=== PATIENT | female | born 1975 | race Caucasian/White ===

== ENCOUNTER 2023-05-14 17:07 | Emergency (ER) | payer OTHER, SELFPAY ==
--- NOTE | ~2023-05-14 | XR_ITS ---
XR foot LT min 3V DATE: 05/14/2023 17:46 INDICATION: Dropped bumper on foot. Pain, swelling, bruising of the dorsum TECHNIQUE: 4 views COMPARISON: None FINDINGS: Prominent plantar and moderately prominent posterior calcaneal enthesopathy. 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 No fracture or dislocation, periosteal reaction or bone destruction is detected. 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
[2023-05-14 17:13] VITALS: BP 139/91; PULSE 92; RESP 18; TEMP 36.1; O2SAT 98
--- NOTE | 2023-05-14 19:18 | ED.LOWEXIN ---
HPI - Extremity Injury (Lower) General Chief Complaint: Extremity Injury, Lower <Rebeca Barclay PA-C - Last Filed: 05/15/23 03:55> Stated Complaint: Left foot injury <CELIO Cannon Last Filed: 05/15/23 03:55> Time Seen by Provider: 05/14/23 19:13 <CELIO Cannon Last Filed: 05/15/23 03:55> History of Present Illness HPI Narrative: 47-year-old female reports for evaluation of left foot pain after she dropped a semi bumper on her foot while at work today. States her foot immediately began to bruise and become swollen so she came to the ED. She denies paresthesias. She is able to ambulate but with pain. Denies injury to the remainder of the foot. No break in the skin. <Rebeca Barclay PA-C - Last Filed: 05/15/23 03:55> Review of Systems Review of Systems: CONSTITUTIONAL: Denies fever, chills EYES: Denies visual changes, redness, or discharge. ENT: Denies rhinorrhea, congestion, sore throat, or otalgia. CARDIOVASCULAR: Denies chest pain, palpitations, or edema. RESPIRATORY: Denies cough or dyspnea. GASTROINTESTINAL: Denies abdominal pain, nausea, vomiting, or diarrhea. GENITOURINARY: Denies dysuria or hematuria. SKIN: Denies rash or itching. MUSCULOSKELETAL: See HPI NEUROLOGIC: Denies headache, numbness, dizziness, or weakness. PSYCHIATRIC: Denies anxiety or depression. <CELIO Cannon Last Filed: 05/15/23 03:55> Exam Narrative: GENERAL: Well-appearing, in no acute distress. HEAD: Normocephalic NECK: Supple. CHEST: No respiratory distress. Clear to auscultation, no adventitious breath sounds. HEART: Regular rate and rhythm. No murmur heard. Normal peripheral pulses. EXTREMITIES: Left foot with tenderness and edema to overlying the 1st-3rd metatarsal. Remainder of the lower extremity nontender and unremarkable. Full range of motion of ankle and foot. DP pulse 2+. Cap refill less than 2. Sensation intact. SKIN: Warm, dry, no rash. NEURO: No focal deficits. Alert and oriented x3. PSYCH: Normal mood and affect. <Rebeca Barclay PA-C - Last Filed: 05/15/23 03:55> Course [employer]NAGER/PA Physician Supervision This is a was performed by both a physician and an APC. I performed all aspects of the MDM as documented w/ the following additions: 47-year-old female presenting with foot trauma. X-rays negative for acute fracture. Patient discharged with NSAIDs and follow-up.All questions answered. Patient in agreement w/ disposition. <uGrinder Huerta MD - Last Filed: 05/18/23 18:45> Vital Signs Vital signs: Vital Signs Temperature 96.9 F L 05/14/23 17:13 Pulse Rate 92 05/14/23 17:13 Respiratory Rate 18 05/14/23 17:13 Blood Pressure 139/91 H 05/14/23 17:13 Pulse Oximetry 98 05/14/23 17:13 Oxygen Delivery Room Air 05/14/23 17:13 Temperature 96.9 F L 05/14/23 17:13 Pulse Rate 92 05/14/23 17:13 Respiratory Rate 18 05/14/23 17:13 Blood Pressure 139/91 H 05/14/23 17:13 Pulse Oximetry 98 05/14/23 17:13 Oxygen Delivery Room Air 05/14/23 17:13 <Rebeca Barclay PA-C - Last Filed: 05/15/23 03:55> Vital Signs Temperature 96.9 F L 05/14/23 17:13 Pulse Rate 92 05/14/23 17:13 Respiratory Rate 18 05/14/23 17:13 Blood Pressure 139/91 H 05/14/23 17:13 Pulse Oximetry 98 05/14/23 17:13 Oxygen Delivery Room Air 05/14/23 17:13 Temperature 96.9 F L 05/14/23 17:13 Pulse Rate 92 05/14/23 17:13 Respiratory Rate 18 05/14/23 17:13 Blood Pressure 139/91 H 05/14/23 17:13 Pulse Oximetry 98 05/14/23 17:13 Oxygen Delivery Room Air 05/14/23 17:13 <Gurinder Huerta MD - Last Filed: 05/18/23 18:45> MDM - Extremity Injury (Lower) MDM Narrative Medical decision making narrative: 47-year-old female reports for evaluation of left foot pain after she dropped a semi bumper on her foot while at work today. Exam reveals tenderness to the left midfoot with edema and ecchymosis. P
== END 2023-05-14 19:40 | disposition home or self-care (01) ==
LOC: ANHED 19:33
PROVIDERS: Emergency Provider Physician Assistant; PCP Nurse Practitioner
DX: S99.922A Unspecified injury of left foot, initial encounter (principal); M19.072 Primary osteoarthritis, left ankle and foot; W20.8XXA Other cause of strike by thrown, projected or falling object, initial encounter
CPT/HCPCS: 73630; 99283